=== PATIENT | female | born 1965 | race Caucasian/White ===

== ENCOUNTER 2024-12-21 09:13 | Inpatient (IN) ==
[2024-12-21] MEDS: Lactated Ringers 1000 ml BAG 1,000 ML IV ONE ×3 (09:45→15:44)
[2024-12-21 09:46] LABS: ABS Lymphocytes 1.1 10^3/uL (1.0-4.8); ABS Monocytes 1.5 10^3/uL (0.0-0.9); ABS Neutrophils 17.6 10^3/uL (1.5-7.6); ABS Nucleated RBC 0.01 10^3/ul; Hemoglobin 11.4 g/dL (11.5-14.3); Lymphocyte % 5.6 %; Mean Corpuscular Hemoglobin 31.6 pg (27-33); Mean Corpuscular Hgb Conc 34.6 g/dL (31-36); Mean Corpuscular Volume 91.3 fL (80-97); Mean Platelet Volume 7.7 fL (7.5-11.2); Platelet Count 304 10^3/uL (150-450); Red Blood Count 3.62 10^6/uL (3.63-4.92); Red Cell Distribution Width 13.4 % (12-17); Urine Appearance Clear; Urine Bilirubin Negative (Negative); Urine Blood Trace (Negative); Urine Color Yellow; Urine Glucose Negative (Negative); Urine Ketones Trace (Negative); Urine Nitrite Negative (Negative); Urine Protein 1+ (>=30 mg/dL) (Negative); Urine Specific Gravity 1.026 (1.002-1.030); Urine Urobilinogen Negative (Negative); White Blood Count 20.3 10^3/uL (3.8-11.8)
[2024-12-21] MEDS: Morphine 4 MG/ML VIAL (1 ml) IV ONE ×2 (09:46→11:43)
[2024-12-21] MEDS: Ondansetron 4 mg VIAL 2 MG/ML 2 ml VIAL IV ONE ×2 (09:46→12:32)
[2024-12-21 09:50] LABS: Urine Bacteria Absent /HPF (Absent); Urine Red Blood Cell 1+(3-5/hpf) /HPF (0-Trace); Urine Squamous Epithelial Cell Present /HPF (Absent); Urine White Blood Cell 2+(11-20/hpf) /HPF (0-Trace)
[2024-12-21] MEDS: cefTRIAXone 1 gm/50 mL D5W 1 GM/50 ML BAG IV ONE (10:26)
[2024-12-21 10:31] LABS: Albumin 3.9 g/dL (3.5-5.7); Albumin/Globulin Ratio 1.7 (1-3); C Reactive Protein 163.89 mg/L (<8.01); Creatinine, Serum 1.12 mg/dL (0.51-0.95); Globulin 2.3 g/dL (2-4); Potassium 3.5 mmol/L (3.5-5.0); Total Bilirubin 0.7 mg/dL (0.2-1.0); Total Protein 6.2 g/dL (6.4-8.9); eGFR CKD-EPI 55.9 (>60)
[2024-12-21] MEDS: Morphine 2 MG/ML SYRINGE IV PRN (15:44)
[2024-12-21] MEDS: Senna TAB 8.6 mg TAB PO PRN (19:57)
[2024-12-21] MEDS: Ondansetron 4 mg VIAL 2 MG/ML 2 ml VIAL IV PRN (19:58)
[2024-12-22 06:25] LABS: Hematocrit 29.9 % (35-45); Hemoglobin 10.3 g/dL (11.5-14.3); Mean Corpuscular Hemoglobin 31.9 pg (27-33); Mean Corpuscular Hgb Conc 34.3 g/dL (31-36); Mean Platelet Volume 7.8 fL (7.5-11.2); Platelet Count 258 10^3/uL (150-450); Red Blood Count 3.22 10^6/uL (3.63-4.92); Red Cell Distribution Width 14.2 % (12-17); White Blood Count 13.2 10^3/uL (3.8-11.8)
[2024-12-22 06:40] LABS: Calcium 8.5 mg/dL (8.6-10.3); Creatinine, Serum 1.2 mg/dL (0.51-0.95); Magnesium 1.8 mg/dL (1.9-2.7); Potassium 3.6 mmol/L (3.5-5.0); eGFR CKD-EPI 51.5 (>60)
[2024-12-22 07:15] LABS: ABS Eosinophils 0.1 10^3/uL (0.0-0.5); ABS Lymphocytes 1.7 10^3/uL (1.0-4.8); ABS Monocytes 1.6 10^3/uL (0.0-0.9); ABS Neutrophils 9.8 10^3/uL (1.5-7.6); ABS Nucleated RBC 0.01 10^3/ul; Eosinophil % 0.4 %; Lymphocyte % 12.7 %
[2024-12-22] MEDS: Polyethylene Glycol 3350 17 GM PACKET PO PRN (09:53)
[2024-12-22] MEDS: CMC:Pravastatin 20 mg TAB (NF) PO SCH (09:54)
[2024-12-22] MEDS: Magnesium Sulfate 2 gm BAG 2 GM/50 ML BAG IVPB ONE (09:54)
[2024-12-22] MEDS: cefTRIAXone 1 gm/50 mL D5W 1 GM/50 ML BAG IV SCH (11:17)
[2024-12-22] MEDS: Lactated Ringers 1000 ml BAG 1,000 ML IV ONE (18:08)
[2024-12-22] MEDS: Enoxaparin 40 MG/0.4 ML SYR SUBCUT SCH (20:01)
[2024-12-22] MEDS: Iodixanol 320 (CONTRAST) 100 ML SDV IV ONE (22:43)
[2024-12-23] MEDS: Acetaminophen IV 1 GM/100ML 1,000 MG/100 ML BAG IV PRN (00:34)
[2024-12-23 06:03] LABS: ABS Eosinophils 0.1 10^3/uL (0.0-0.5); ABS Lymphocytes 1.1 10^3/uL (1.0-4.8); ABS Neutrophils 8.3 10^3/uL (1.5-7.6); Eosinophil % 1.1 %; Hematocrit 27.3 % (35-45); Hemoglobin 9.5 g/dL (11.5-14.3); Lymphocyte % 10.2 %; Mean Corpuscular Hemoglobin 31.6 pg (27-33); Mean Corpuscular Hgb Conc 34.7 g/dL (31-36); Mean Corpuscular Volume 90.9 fL (80-97); Mean Platelet Volume 7.8 fL (7.5-11.2); Platelet Count 261 10^3/uL (150-450); Red Cell Distribution Width 13.9 % (12-17); White Blood Count 10.5 10^3/uL (3.8-11.8)
[2024-12-23 06:46] LABS: Creatinine, Serum 0.81 mg/dL (0.51-0.95); Magnesium 2.1 mg/dL (1.9-2.7); Potassium 3.4 mmol/L (3.5-5.0); eGFR CKD-EPI 82.5 (>60)
[2024-12-23] MEDS: KCL 20 MEQ/100 ML IVPREMIX 20 MEQ/100 ML BAG IV ONE (09:03)
[2024-12-23] MEDS ORDERED: Propofol 10 MG/ML 20 ML BTL ONE (13:29)
[2024-12-23] MEDS ORDERED: fentaNYL 100 mcg/2 ml 50 MCG/ML VIAL ONE ×2 (13:29→15:05)
[2024-12-23] MEDS ORDERED: Midazolam 2 mg/2 ml VIAL 1 mg/ml 2 ml VIAL (2 mg) ONE (13:29)
[2024-12-23] MEDS ORDERED: Lidocaine 2% PF 5 ML VIAL ONE (13:30)
[2024-12-23] MEDS ORDERED: Lidocaine 2% JELLY 6 ML Topical TOPICAL ONE (13:53)
[2024-12-23] MEDS ORDERED: Lidocaine 2% JELLY 10 ML JELLY ONE (13:57)
[2024-12-23] MEDS ORDERED: Naloxone 0.4 mg VIAL 0.4 mg/ml 1 ml VIAL IV PRN (15:04)
[2024-12-23] MEDS ORDERED: Ondansetron 4 mg VIAL 2 MG/ML 2 ml VIAL IV PRN (15:04)
[2024-12-23] MEDS ORDERED: Acetaminophen IV 1 GM/100ML 1,000 MG/100 ML BAG IV ONE (15:05)
[2024-12-23] MEDS: fentaNYL 100 mcg/2 ml 50 MCG/ML VIAL IV PRN (15:08)
[2024-12-23] MEDS: Acetaminophen IV 1 GM/100ML 1,000 MG/100 ML BAG IV ONE (15:56)
[2024-12-23] MEDS: Lactated Ringers 1000 ml BAG 1,000 ML IV SCH (16:31)
[2024-12-23] MEDS: Potassium Chlor 20 meq TAB.ER PO ONE (16:34)
[2024-12-24 07:09] LABS: ABS Lymphocytes 1.1 10^3/uL (1.0-4.8); ABS Monocytes 0.5 10^3/uL (0.0-0.9); ABS Neutrophils 6.6 10^3/uL (1.5-7.6); Hematocrit 28.1 % (35-45); Hemoglobin 9.9 g/dL (11.5-14.3); Lymphocyte % 13.3 %; Mean Corpuscular Hemoglobin 32.3 pg (27-33); Mean Corpuscular Hgb Conc 35.3 g/dL (31-36); Mean Corpuscular Volume 91.5 fL (80-97); Nucleated Red Blood Cells % 0.1 %/100WBC (0.0-0.8); Platelet Count 306 10^3/uL (150-450); Red Blood Count 3.07 10^6/uL (3.63-4.92); Red Cell Distribution Width 13.7 % (12-17); White Blood Count 8.3 10^3/uL (3.8-11.8)
[2024-12-24 07:30] LABS: Calcium 8.3 mg/dL (8.6-10.3); Creatinine, Serum 0.53 mg/dL (0.51-0.95); Potassium 3.8 mmol/L (3.5-5.0); eGFR CKD-EPI 105.2 (>60)
[2024-12-24 09:39] VITALS: BP 140/90
== END 2024-12-24 12:15 | disposition home or self-care (01) | DRG 854 ==
LOC: ED 09:13 → EDHOLD 09:13 → SUATTDRO 13:47 → EDHOLD 14:28 → MED 15:41
PROVIDERS: ADMIT Hospitalist; ATTEND Hospitalist